=== PATIENT | male | born 1955 | race African-American/Black ===

== ENCOUNTER 2017-04-09 11:18 | Emergency (ER) | payer MEDICAID ==
[~2017-04-09] VITALS: Ht 188 cm; Wt 69.0 kg
[~2017-04-09 11:18] MED LIST: AMLO10TA80 PO; BENA40TA3 PO; DOCU-138 PO
[2017-04-09] MEDS ORDERED: ACETAMINOPHEN 500MG TABLET PO ONE (14:30)
[2017-04-09 18:29] VITALS: BP 124/84
== END 2017-04-09 18:30 | disposition home or self-care (01) ==
LOC: ER 15:07
DX: M25.462 Effusion, left knee (principal); I10 Essential (primary) hypertension; Z98.890 Other specified postprocedural states
CPT/HCPCS: 73562; 99284

== ENCOUNTER 2017-04-12 15:42 | Inpatient (IN) | payer MEDICAID ==
[~2017-04-12] VITALS: Ht 185.4 cm; Wt 67.1 kg
[2017-04-12] MEDS ORDERED: VANCOMYCIN 1 G PREMIX 200 ML IV SCH (20:30)
[2017-04-12] MEDS ORDERED: PIPERACILLIN/TAZ 3.375G PREMIX 50 ML IV NR (20:30)
[2017-04-12] MEDS ORDERED: PIPERACILLIN/TAZOBACTAM 3.375GM/50ML PREMIX IV ONE (20:30)
[2017-04-12 21:16] LABS: BASOPHILS % 1.6 % (0.0-2.0); EOSINOPHILS % 0.8 % (0.0-5.0); HEMATOCRIT. 37.8 % (42.0-52.0); HEMOGLOBIN. 12.4 g/dL (14.0-18.0); LYMPHOCYTES % 14.7 % (20.0-50.0); MEAN CORPUSCULAR HEMOGLOBIN 30.6 pg (28.0-32.0); MEAN CORPUSCULAR VOLUME 93.7 fL (80.0-94.0); MEAN PLATELET VOLUME 8.3 fl (7.4-10.4); MONOCYTES % 7.2 % (2.0-8.0); NEUTROPHILS % 75.7 % (40.0-76.0); PLATELET 319 x1000/uL (130-400); RED BLOOD CELL COUNT 4.03 mill/uL (4.7-6.1); RED CELL DISTRIBUTION WIDTH 20.4 % (11.6-14.6)
[2017-04-12 21:22] LABS: CHLORIDE 102 mEq/L (98-107)
[2017-04-12 21:28] LABS: CARBON DIOXIDE 26 mEq/L (21-32)
[2017-04-13] MEDS ORDERED: ACETAMINOPHEN 325MG TABLET PO ONE (00:45)
[2017-04-13] MEDS ORDERED: PIPERACILLIN/TAZ 2.25G PREMIX 50 ML IV SCH (08:45)
[2017-04-13 09:16] VITALS: BP 126/72
[2017-04-13 10:24] LABS: PARTIAL THROMBOPLASTIN TIME 30.3 sec (23.4-31.0); PROTHROMBIN TIME 10.5 sec (9.4-11.6)
[2017-04-13] MEDS ORDERED: MAGNESIUM/ALUMINUM HYDROXIDE/SIMETHICONE 30ML UDC PO PRN (10:30)
[2017-04-13] MEDS ORDERED: DIPHENHYDRAMINE 50MG/ML VIAL IV PRN (10:30)
[2017-04-13] MEDS ORDERED: ONDANSETRON HCL 4MG/2ML VIAL IV PRN (10:30)
[2017-04-13] MEDS ORDERED: HYDROCODONE/ACETAMINOPHEN 5/325MG TABLET PO PRN (10:30)
[2017-04-13] MEDS ORDERED: ACETAMINOPHEN 650MG SUPP PR PRN (10:30)
[2017-04-13] MEDS ORDERED: IPRATROPIUM/ALBUTEROL 0.5-3(2.5)MG/3ML NEB INH PRN (10:30)
[2017-04-13] MEDS ORDERED: CLONIDINE 0.1MG TABLET PO PRN (10:30)
[2017-04-13] MEDS: AMLODIPINE 10MG TABLET PO SCH (10:30)
[2017-04-13] MEDS ORDERED: DOCUSATE SODIUM 100MG CAPSULE PO PRN ×2 (10:30)
[2017-04-13] MEDS: PIPERACILLIN/TAZ 2.25G PREMIX 50 ML IV SCH ×3 (14:40→21:49)
[2017-04-13] MEDS ORDERED: SODIUM BICARBONATE 4% (2.4MEQ) 5ML VIAL IV ONE (14:43)
[2017-04-13] MEDS ORDERED: LIDOCAINE HCL 1% 20ML VIAL (Pyxis) INJ ONE (14:43)
[2017-04-13 14:52] LABS: CREATINE KINASE 61 IU/L (39-308); TROPONIN I < 0.02 ng/mL (0.00-0.04)
[2017-04-13 16:00] VITALS: BP 109/77
[2017-04-13] MEDS ORDERED: VANCOMYCIN 500 MG PREMIX 100 ML IV NR (18:00)
[2017-04-13 20:00] VITALS: BP 110/76
[2017-04-13 23:28] LABS: CREATINE KINASE 48 IU/L (39-308); TROPONIN I < 0.02 ng/mL (0.00-0.04)
[2017-04-14] VITALS: BP 114/70
[2017-04-14 04:00] VITALS: BP 117/80
[2017-04-14] MEDS: PIPERACILLIN/TAZ 2.25G PREMIX 50 ML IV SCH ×3 (05:26→21:16)
[2017-04-14 07:49] LABS: BASOPHILS % 0.8 % (0.0-2.0); EOSINOPHILS % 1.5 % (0.0-5.0); HEMATOCRIT. 35.8 % (42.0-52.0); HEMOGLOBIN. 11.6 g/dL (14.0-18.0); MEAN CORPUSCULAR HEMOGLOBIN 30.2 pg (28.0-32.0); MEAN CORPUSCULAR VOLUME 93.2 fL (80.0-94.0); MEAN PLATELET VOLUME 8.2 fl (7.4-10.4); MONOCYTES % 11.6 % (2.0-8.0); NEUTROPHILS % 67.1 % (40.0-76.0); PLATELET 308 x1000/uL (130-400); RED BLOOD CELL COUNT 3.84 mill/uL (4.7-6.1); RED CELL DISTRIBUTION WIDTH 19.8 % (11.6-14.6)
[2017-04-14 08:00] VITALS: BP 112/80
[2017-04-14 08:00] LABS: CHLORIDE 101 mEq/L (98-107)
[2017-04-14 08:20] LABS: CARBON DIOXIDE 22 mEq/L (21-32); HDL CHOLESTEROL 67 mg/dL (40-59); LDL CHOLESTEROL 86 mg/dL (5-100)
[2017-04-14] MEDS: AMLODIPINE 10MG TABLET PO SCH (08:26)
[2017-04-14] MEDS: HYDROCODONE/ACETAMINOPHEN 10/325MG TABLET PO PRN ×2 (08:26→13:21)
[2017-04-14 09:09] LABS: BG BASE EXCESS -0.3 mmol/L (-2.0-2.0); BG DEOXYHEMOGLOBIN 4.8 % (0.0-5.0); BG FRACTION INSPIRED OXYGEN 21; BG METHEMOGLOBIN 0.3 % (0.0-1.5); BG OXYGEN SATURATION 95.1 % (92.0-98.5); BG OXYHEMOGLOBIN 93.9 % (94.0-97.0); BG PCO2 38.3 mmHg (35.0-45.0); BG PH 7.415 (7.350-7.450); BG PO2 77.1 mmHg (75.0-100.0); BG SAMPLE SITE RIGHT BRACHIAL; BG TOTAL HEMOGLOBIN 12.9 g/dL (12.0-18.0); BG VENT MODE ROOM AIR
[2017-04-14 12:00] VITALS: BP 100/69
[2017-04-14 12:24] LABS: CLARITY URINE CLEAR (CLEAR); COLOR URINE YELLOW (YELLOW); GLUCOSE URINE NEGATIVE (NEGATIVE); KETONES URINE NEGATIVE (NEGATIVE); LEUKOCYTE ESTERASE URINE 1+ (NEGATIVE); NITRITE URINE NEGATIVE (NEGATIVE); OCCULT BLOOD URINE 1+ (NEGATIVE); PH URINE 6.5 (4.5-8.0); PROTEIN URINE 2+ (NEGATIVE); SPECIFIC GRAVITY URINE 1.016 (1.005-1.030)
[2017-04-14 16:00] VITALS: BP 109/76
[2017-04-14 20:00] VITALS: BP 108/73
[2017-04-15] VITALS: BP 114/71
[2017-04-15] MEDS: HYDROCODONE/ACETAMINOPHEN 10/325MG TABLET PO PRN ×3 (00:14→20:36)
[2017-04-15 04:00] VITALS: BP 122/81
[2017-04-15] MEDS: PIPERACILLIN/TAZ 2.25G PREMIX 50 ML IV SCH ×3 (05:10→21:13)
[2017-04-15 08:00] VITALS: BP 114/85
[2017-04-15] MEDS: AMLODIPINE 10MG TABLET PO SCH (09:08)
[2017-04-15 12:00] VITALS: BP 116/77
[2017-04-15 13:35] LABS: BASOPHILS % 0.9 % (0.0-2.0); EOSINOPHILS % 2.5 % (0.0-5.0); HEMATOCRIT. 36.4 % (42.0-52.0); HEMOGLOBIN. 11.9 g/dL (14.0-18.0); LYMPHOCYTES % 19.3 % (20.0-50.0); MEAN CORPUSCULAR HEMOGLOBIN 30.5 pg (28.0-32.0); MEAN CORPUSCULAR VOLUME 92.9 fL (80.0-94.0); MONOCYTES % 11.6 % (2.0-8.0); NEUTROPHILS % 65.7 % (40.0-76.0); PLATELET 332 x1000/uL (130-400); RED BLOOD CELL COUNT 3.92 mill/uL (4.7-6.1)
[2017-04-15 16:00] VITALS: BP 101/62
[2017-04-15] MEDS ORDERED: VANCOMYCIN 1 G PREMIX 200 ML IV NR (18:00)
[2017-04-15 20:00] VITALS: BP 101/68
[2017-04-16] VITALS (11 sets, daily range): BP systolic 114–138; BP diastolic 77–94
[2017-04-16 07:20] LABS: BASOPHILS % 0.7 % (0.0-2.0); EOSINOPHILS % 2.5 % (0.0-5.0); HEMATOCRIT. 34.1 % (42.0-52.0); HEMOGLOBIN. 11.4 g/dL (14.0-18.0); LYMPHOCYTES % 23.6 % (20.0-50.0); MEAN CORPUSCULAR VOLUME 92.4 fL (80.0-94.0); MEAN PLATELET VOLUME 7.9 fl (7.4-10.4); MONOCYTES % 11.5 % (2.0-8.0); NEUTROPHILS % 61.7 % (40.0-76.0); PLATELET 354 x1000/uL (130-400); RED CELL DISTRIBUTION WIDTH 19.9 % (11.6-14.6)
[2017-04-16] MEDS ORDERED: SODIUM BICARBONATE 4% (2.4MEQ) 5ML VIAL IV ONE (08:09)
[2017-04-16] MEDS ORDERED: LIDOCAINE HCL 1% 20ML VIAL (Pyxis) INJ ONE (08:09)
[2017-04-16] MEDS ORDERED: FENTANYL CITRATE/PF 50MCG/ML 2ML VIAL ONE (08:34)
[2017-04-16] MEDS ORDERED: FENTANYL CITRATE/PF 50MCG/ML 2ML VIAL IV ONE (09:00)
[2017-04-16] MEDS: AMLODIPINE 10MG TABLET PO SCH (09:20)
[2017-04-16] MEDS ORDERED: TRAM50TA3 PO (10:46)
[2017-04-16] MEDS ORDERED: AMLO10TA80 PO (10:46)
[2017-04-16] MEDS: PIPERACILLIN/TAZ 2.25G PREMIX 50 ML IV SCH (13:38)
[2017-04-16] MEDS ORDERED: VANCOMYCIN 750 MG PREMIX 150 ML IV SCH (16:00)
[2017-04-16] MEDS ORDERED: HEPARIN SODIUM 1,000 UNIT/1ML VIAL IV NR (16:30)
== END 2017-04-16 20:00 | disposition home or self-care (01) | DRG 721 ==
LOC: ER 15:42 → 8WST 23:13 → ENRESERV 04-13 07:09
PROVIDERS: ADMIT Internal Medicine; ATTEND Internal Medicine
PROC: 02PYX3Z Removal of Infusion Device from Great Vessel, External Approach (ICD-10-PCS; principal; 2017-04-13)
PROC: 02HV33Z Insertion of Infusion Device into Superior Vena Cava, Percutaneous Approach (ICD-10-PCS; 2017-04-16)
PROC: B548ZZA Ultrasonography of Superior Vena Cava, Guidance (ICD-10-PCS; 2017-04-16)
DX: T80.211A Bloodstream infection due to central venous catheter, initial encounter (principal); E43 Unspecified severe protein-calorie malnutrition; N18.6 End stage renal disease; A41.9 Sepsis, unspecified organism; I12.0 Hypertensive chronic kidney disease with stage 5 chronic kidney disease or end stage renal disease; N39.0 Urinary tract infection, site not specified; J44.9 Chronic obstructive pulmonary disease, unspecified; Y84.8 Other medical procedures as the cause of abnormal reaction of the patient, or of later complication, without mention of misadventure at the time of the procedure; B96.89 Other specified bacterial agents as the cause of diseases classified elsewhere; D64.9 Anemia, unspecified; F17.210 Nicotine dependence, cigarettes, uncomplicated; Z79.899 Other long term (current) drug therapy; Z99.2 Dependence on renal dialysis
CPT/HCPCS: 36415; 36589; 36600; 71010; 73560; 76937; 77001; 80048; 80053; 80061; 80202; 81001; 82375; 82550; 82805; 83605; 84443; 84484; 85025; 85610; 85730; 87040; 87070; 87077; 87186; 93306; 93970; 96365; 96367; 97162; 99285; C1750; C1769; J1642; J1644; J2543; J3010; J3370; J3490; J7050

== ENCOUNTER 2018-06-02 11:16 | Emergency (ER) | payer MEDICAID ==
[~2018-06-02] VITALS: Ht 182.9 cm; Wt 78.0 kg
[~2018-06-02 11:16] MED LIST changes: -BENA40TA3 PO; +TRAM50TA3 PO
[2018-06-02 13:08] LABS: BASOPHILS % 0.8 % (0.0-2.0); EOSINOPHILS % 4.2 % (0.0-5.0); HEMATOCRIT. 36.9 % (42.0-52.0); HEMOGLOBIN. 12.7 g/dL (14.0-18.0); MEAN CORPUSCULAR HEMOGLOBIN 33.3 pg (28.0-32.0); MEAN CORPUSCULAR VOLUME 96.6 fL (80.0-94.0); MEAN PLATELET VOLUME 8.9 fl (7.4-10.4); MONOCYTES % 9.8 % (2.0-8.0); NEUTROPHILS % 38.2 % (40.0-76.0); PLATELET 214 x1000/uL (130-400); RED BLOOD CELL COUNT 3.82 mill/uL (4.7-6.1); RED CELL DISTRIBUTION WIDTH 15.2 % (11.6-14.6)
[2018-06-02 13:16] LABS: CHLORIDE 95 mEq/L (98-107)
[2018-06-02 14:17] VITALS: BP 110/68
== END 2018-06-02 14:19 | disposition home or self-care (01) ==
LOC: ER 11:16
DX: R55 Syncope and collapse (principal); I12.9 Hypertensive chronic kidney disease with stage 1 through stage 4 chronic kidney disease, or unspecified chronic kidney disease; N18.9 Chronic kidney disease, unspecified; Z99.2 Dependence on renal dialysis
CPT/HCPCS: 36415; 84484; 99284

== ENCOUNTER 2019-09-12 05:27 | Inpatient (IN) | payer MEDICAID ==
[~2019-09-12] VITALS: Ht 182.9 cm; Wt 72.6 kg
[2019-09-12] MEDS ORDERED: TRANEXAMIC ACID 1,000 MG in SODIUM CHLORIDE 0.9% 100 ML IV STA (06:27)
[2019-09-12] MEDS ORDERED: MORPHINE SULFATE/PF 1MG/ML 10ML AMP ONE (06:35)
[2019-09-12] MEDS ORDERED: EPINEPHRINE 1:1000 1 MG/ML AMP ONE (06:36)
[2019-09-12] MEDS ORDERED: SKIN ADHESIVE 0.7 GM EA TOP ONE (06:36)
[2019-09-12] MEDS ORDERED: BUPIVACAINE/EPINEPH/PF 0.25%/0.0005 10ML ONE ×3 (06:36→12:09)
[2019-09-12] MEDS ORDERED: BACITRACIN 50,000 UNITS/VIAL ONE ×2 (06:37→07:19)
[2019-09-12] MEDS ORDERED: VANCOMYCIN HCL 1 GM/VIAL ONE (06:37)
[2019-09-12 07:17] LABS: BASOPHILS % 0.6 % (0.0-2.0); EOSINOPHILS % 4.4 % (0.0-5.0); HEMATOCRIT. 34.6 % (42.0-52.0); HEMOGLOBIN. 11.7 g/dL (14.0-18.0); LYMPHOCYTES % 30.7 % (20.0-50.0); MEAN CORPUSCULAR HEMOGLOBIN 32.2 pg (28.0-32.0); MEAN CORPUSCULAR VOLUME 95.4 fL (80.0-94.0); MEAN PLATELET VOLUME 8.4 fl (7.4-10.4); MONOCYTES % 8.8 % (2.0-8.0); NEUTROPHILS % 55.5 % (40.0-76.0); PLATELET 192 x1000/uL (130-400); RED BLOOD CELL COUNT 3.63 mill/uL (4.7-6.1); RED CELL DISTRIBUTION WIDTH 15.6 % (11.6-14.6)
[2019-09-12] MEDS ORDERED: BENA20TA10 PO (07:18)
[2019-09-12 07:25] LABS: CLARITY URINE CLEAR (CLEAR); COLOR URINE YELLOW (YELLOW); KETONES URINE NEGATIVE (NEGATIVE); LEUKOCYTE ESTERASE URINE TRACE (NEGATIVE); NITRITE URINE NEGATIVE (NEGATIVE); OCCULT BLOOD URINE NEGATIVE (NEGATIVE); PH URINE >=9.0 (4.5-8.0); PROTEIN URINE 2+ (NEGATIVE); UROBILINOGEN URINE 0.2 E.U./dL (0.2-1.0)
[2019-09-12] MEDS ORDERED: FENTANYL CITRATE/PF 50MCG/ML 2ML VIAL ONE (07:36)
[2019-09-12] MEDS ORDERED: PROPOFOL 200MG/20ML VIAL IV ONE (07:36)
[2019-09-12] MEDS ORDERED: ROCURONIUM BROMIDE 10MG/ML VIAL 5ML IV ONE ×3 (07:36→11:07)
[2019-09-12] MEDS ORDERED: MIDAZOLAM HCL 2 MG/2 ML VIAL ONE (07:36)
[2019-09-12] MEDS ORDERED: ROPIVACAINE HCL 10MG/ML 20 ML VIAL EPI ONE (07:39)
[2019-09-12] MEDS ORDERED: GENTAMICIN SULF 40MG/ML 2ML VIAL ONE (08:27)
[2019-09-12 09:04] LABS: PARTIAL THROMBOPLASTIN TIME 29.2 sec (23.4-31.0); PROTHROMBIN TIME 10.4 sec (9.6-11.0)
[2019-09-12] MEDS ORDERED: THROMBIN (BOVINE) 5000 UNITS/VIAL TOP ONE (09:54)
[2019-09-12] MEDS ORDERED: PHENYLEPHRINE HCL 10 MG/ML 1ML (IV VIAL) IV ONE ×2 (10:22→10:51)
[2019-09-12] MEDS ORDERED: CEFAZOLIN SODIUM 1000MG/VIAL ONE (10:22)
[2019-09-12] MEDS ORDERED: SODIUM CHLORIDE 0.9% 10ML VIAL ONE (10:22)
[2019-09-12] MEDS ORDERED: LIDOCAINE HCL/PF 1% 10 MG/ML 5ML VIAL ONE (10:22)
[2019-09-12] MEDS ORDERED: METHYLENE BLUE 50 MG/10 ML AMP IV ONE (10:50)
[2019-09-12] MEDS ORDERED: NEOSTIGMINE METHYLSULFATE 1MG/ML 10 ML VIAL ONE (13:05)
[2019-09-12] MEDS ORDERED: GLYCOPYRROLATE 0.2 MG/ML 2ML VIAL ONE (13:06)
[2019-09-12] MEDS ORDERED: ONDANSETRON HCL 4MG/2ML INJ IV PRN ×2 (13:15→13:30)
[2019-09-12] MEDS ORDERED: FENTANYL CITRATE/PF 50MCG/ML 2ML VIAL IV PRN (13:15)
[2019-09-12] MEDS ORDERED: HYDROMORPHONE HCL/PF 2MG/ML CPJ IV PRN (13:15)
[2019-09-12] MEDS ORDERED: ACETAMINOPHEN 325MG TABLET PO PRN (13:30)
[2019-09-12] MEDS ORDERED: HYDROCODONE/ACETAMINOPHEN 10/325MG TABLET PO PRN ×2 (13:30)
[2019-09-12] MEDS ORDERED: HYDROMORPHONE PCA 10MG/50ML IV PRN (14:15)
[2019-09-12] MEDS ORDERED: ONDANSETRON INJ IV PRN (14:15)
[2019-09-12] MEDS ORDERED: DIPHENHYDRAMINE INJ IV PRN (14:15)
[2019-09-12] MEDS ORDERED: NALOXONE INJ IV PRN (14:15)
[2019-09-12 15:22] VITALS: BP 87/46
[2019-09-12 16:00] VITALS: BP 107/31
[2019-09-12 20:00] VITALS: BP 155/49
[2019-09-13] VITALS: BP 142/41
[2019-09-13 04:00] VITALS: BP 154/68
[2019-09-13 07:48] LABS: BASOPHILS % 0.2 % (0.0-2.0); EOSINOPHILS % 0.5 % (0.0-5.0); HEMATOCRIT. 30.4 % (42.0-52.0); HEMOGLOBIN. 10.5 g/dL (14.0-18.0); LYMPHOCYTES % 12.1 % (20.0-50.0); MEAN CORPUSCULAR HEMOGLOBIN 32.8 pg (28.0-32.0); MEAN CORPUSCULAR VOLUME 94.9 fL (80.0-94.0); MEAN PLATELET VOLUME 9.1 fl (7.4-10.4); MONOCYTES % 9.2 % (2.0-8.0); PLATELET 156 x1000/uL (130-400); RED CELL DISTRIBUTION WIDTH 15.8 % (11.6-14.6)
[2019-09-13 08:00] VITALS: BP 143/56
[2019-09-13] MEDS ORDERED: CEFAZOLIN 1000MG PREMIX 50 ML IV ONE (08:00)
[2019-09-13] MEDS: DOCUSATE SODIUM 100MG CAPSULE PO SCH (09:11)
[2019-09-13 12:00] VITALS: BP 152/48
[2019-09-13 16:00] VITALS: BP 143/68
[2019-09-14] VITALS: BP 144/44
[2019-09-14 04:00] VITALS: BP 134/78
[2019-09-14] MEDS: DOCUSATE SODIUM 100MG CAPSULE PO SCH (07:51)
[2019-09-14 08:00] VITALS: BP 137/47
[2019-09-14 08:07] VITALS: BP 148/58
[2019-09-14 12:00] VITALS: BP 150/35
[2019-09-14 16:00] VITALS: BP 146/67
== END 2019-09-14 18:45 | disposition home or self-care (01) | DRG 322 ==
LOC: OR 05:27 → 6EST 05:28
PROVIDERS: ADMIT Orthopaedic Surgery; ATTEND Orthopaedic Surgery
PROC: 0RRJ0JZ Replacement of Right Shoulder Joint with Synthetic Substitute, Open Approach (ICD-10-PCS; principal; 2019-09-12)
PROC: 5A1D70Z Performance of Urinary Filtration, Intermittent, Less than 6 Hours Per Day (ICD-10-PCS; 2019-09-12)
DX: M19.011 Primary osteoarthritis, right shoulder (principal); I12.0 Hypertensive chronic kidney disease with stage 5 chronic kidney disease or end stage renal disease; N18.6 End stage renal disease; D64.9 Anemia, unspecified; M75.110 Incomplete rotator cuff tear or rupture of unspecified shoulder, not specified as traumatic; G89.29 Other chronic pain; D63.1 Anemia in chronic kidney disease; Z99.2 Dependence on renal dialysis; Z79.899 Other long term (current) drug therapy
CPT/HCPCS: 36415; 73030; 80048; 81003; 85025; 86850; 86900; 88305; 88311; 93005; 97166; 97535; A4565; C1713; C1776; J0171; J0690; J1170; J1580; J2250; J2274; J2370; J2704; J2710; J2795; J3010; J3370; J3490; J7050; Q9968

== ENCOUNTER 2019-10-17 08:47 | Emergency (ER) | payer MEDICAID ==
[~2019-10-17] VITALS: Ht 182.9 cm; Wt 69.0 kg
[~2019-10-17 08:47] MED LIST changes: +BENA20TA10 PO
[2019-10-17] MEDS ORDERED: ACETAMINOPHEN 325MG TABLET PO ONE (09:15)
[2019-10-17 10:40] VITALS: BP 158/92
== END 2019-10-17 10:55 | disposition home or self-care (01) ==
LOC: ER 08:47
DX: M25.511 Pain in right shoulder (principal); I10 Essential (primary) hypertension; Z99.2 Dependence on renal dialysis; Z79.899 Other long term (current) drug therapy
CPT/HCPCS: 73030; 93971; 99284

== ENCOUNTER 2020-04-27 10:09 | Inpatient (IN) | payer MEDICAID ==
[~2020-04-27] VITALS: Ht 177.8 cm; Wt 70.8 kg
[2020-04-27 12:02] LABS: BASOPHILS % 0.5 % (0.0-2.0); EOSINOPHILS % 4.4 % (0.0-5.0); HEMATOCRIT. 34.5 % (42.0-52.0); HEMOGLOBIN. 11.7 g/dL (14.0-18.0); LYMPHOCYTES % 18.4 % (20.0-50.0); MEAN CORPUSCULAR HEMOGLOBIN 32.4 pg (28.0-32.0); MEAN CORPUSCULAR VOLUME 95.9 fL (80.0-94.0); MEAN PLATELET VOLUME 9.2 fl (7.4-10.4); MONOCYTES % 8.9 % (2.0-8.0); NEUTROPHILS % 67.8 % (40.0-76.0); PLATELET 195 x1000/uL (130-400); RED CELL DISTRIBUTION WIDTH 15.9 % (11.6-14.6)
[2020-04-27 12:03] LABS: CHLORIDE 96 mEq/L (98-107)
[2020-04-27 12:06] LABS: PROTHROMBIN TIME 10.5 sec (9.6-11.0)
[2020-04-27 12:18] LABS: CLARITY URINE CLEAR (CLEAR); COLOR URINE YELLOW (YELLOW); KETONES URINE NEGATIVE (NEGATIVE); LEUKOCYTE ESTERASE URINE TRACE (NEGATIVE); NITRITE URINE NEGATIVE (NEGATIVE); OCCULT BLOOD URINE NEGATIVE (NEGATIVE); PH URINE >=9.0 (4.5-8.0); PROTEIN URINE 2+ (NEGATIVE); SPECIFIC GRAVITY URINE 1.014 (1.005-1.030)
[2020-04-27] MEDS ORDERED: SODIUM POLYSTYRENE SULFONATE 15 G/60 ML BOT PO ONE (13:15)
[2020-04-27 15:58] VITALS: BP 125/78
[2020-04-27] MEDS ORDERED: AMLO10TA80 MT (16:06)
[2020-04-27] MEDS ORDERED: BENA10TA74 MT (16:06)
[2020-04-27] MEDS ORDERED: ACETAMINOPHEN 325MG TABLET PO PRN (17:45)
[2020-04-27] MEDS ORDERED: HYDROCODONE/ACETAMINOPHEN 5/325MG TABLET PO PRN (17:58)
[2020-04-27 20:00] VITALS: BP 115/80
[2020-04-27] MEDS: HEPARIN 5000 UNITS/ML VIAL SUBCUT SCH (20:51)
[2020-04-28] VITALS: BP 122/79
[2020-04-28 04:00] VITALS: BP 108/74
[2020-04-28 06:16] LABS: BASOPHILS % 0.4 % (0.0-2.0); EOSINOPHILS % 4.9 % (0.0-5.0); HEMOGLOBIN. 10.7 g/dL (14.0-18.0); LYMPHOCYTES % 24.1 % (20.0-50.0); MEAN CORPUSCULAR HEMOGLOBIN 32.2 pg (28.0-32.0); MEAN CORPUSCULAR VOLUME 93.8 fL (80.0-94.0); MEAN PLATELET VOLUME 9.1 fl (7.4-10.4); NEUTROPHILS % 59.6 % (40.0-76.0); PLATELET 172 x1000/uL (130-400); RED BLOOD CELL COUNT 3.31 mill/uL (4.7-6.1); RED CELL DISTRIBUTION WIDTH 15.7 % (11.6-14.6)
[2020-04-28 08:00] VITALS: BP 96/56
[2020-04-28] MEDS: HEPARIN 5000 UNITS/ML VIAL SUBCUT SCH ×2 (09:00→21:00)
[2020-04-28] MEDS: BENAZEPRIL 10MG TABLET PO SCH (09:00)
[2020-04-28] MEDS: AMLODIPINE 10MG TABLET PO SCH (09:00)
[2020-04-28 12:00] VITALS: BP 99/60
[2020-04-28 16:00] VITALS: BP 101/61
[2020-04-28 20:00] VITALS: BP 113/78
[2020-04-29] VITALS (32 sets, daily range): BP systolic 109–142; BP diastolic 70–86
[2020-04-29 06:52] LABS: PARTIAL THROMBOPLASTIN TIME 34.1 sec (23.4-31.0); PROTHROMBIN TIME 10.8 sec (9.6-11.0)
[2020-04-29] MEDS ORDERED: CEFAZOLIN 1000MG PREMIX 50 ML IV NR (08:00)
[2020-04-29] MEDS: BENAZEPRIL 10MG TABLET PO SCH (08:00)
[2020-04-29] MEDS: HEPARIN 5000 UNITS/ML VIAL SUBCUT SCH ×2 (08:00→21:00)
[2020-04-29] MEDS: AMLODIPINE 10MG TABLET PO SCH (08:00)
[2020-04-29] MEDS ORDERED: FENTANYL CITRATE/PF 50MCG/ML 2ML VIAL ONE (08:06)
[2020-04-29] MEDS ORDERED: CEFAZOLIN 1000MG PREMIX 50 ML IV ONE (08:06)
[2020-04-29] MEDS ORDERED: SODIUM BICARBONATE 4% (2.4MEQ) 5ML VIAL IV ONE (08:13)
[2020-04-29] MEDS ORDERED: IOHEXOL-300 100 ML BOTTLE ONE (08:14)
[2020-04-29] MEDS ORDERED: HEPARIN 1000 UNITS/ML 10ML ONE (08:14)
[2020-04-29] MEDS ORDERED: LIDOCAINE HCL 1% 20ML VIAL (Pyxis) INJ ONE (08:14)
[2020-04-29] MEDS ORDERED: HEPARIN 5000 UNITS/ML VIAL IV SCH (10:45)
[2020-04-29] MEDS ORDERED: IOHEXOL-300 50 ML BOTTLE IV ONE (11:13)
[2020-04-29] MEDS ORDERED: FENTANYL CITRATE/PF 50MCG/ML 2ML VIAL IV ONE (11:30)
[2020-04-29 13:50] LABS: HEMATOCRIT. 31.8 % (42.0-52.0); HEMOGLOBIN. 10.8 g/dL (14.0-18.0); MEAN CORPUSCULAR HEMOGLOBIN 32.3 pg (28.0-32.0); MEAN CORPUSCULAR VOLUME 94.9 fL (80.0-94.0); PLATELET 198 x1000/uL (130-400); RED BLOOD CELL COUNT 3.35 mill/uL (4.7-6.1); RED CELL DISTRIBUTION WIDTH 15.5 % (11.6-14.6)
[2020-04-29 14:22] LABS: PLATELET ESTIMATE NORMAL
[2020-04-29 14:44] LABS: HEPATITIS B SURFACE AB 30.2 mIU/mL
[2020-04-29 14:55] LABS: HEPATITIS B SURFACE ANTIGEN NEGATIVE
[2020-04-29] MEDS ORDERED: HEPARIN SODIUM 1,000 UNIT/1ML VIAL IV ONE (23:30)
[2020-04-30] VITALS (15 sets, daily range): BP systolic 102–152; BP diastolic 66–86
[2020-04-30] MEDS ORDERED: CEFAZOLIN 1000MG PREMIX 50 ML IV ONE (08:51)
[2020-04-30] MEDS ORDERED: FENTANYL CITRATE/PF 50MCG/ML 2ML VIAL ONE (08:52)
[2020-04-30] MEDS ORDERED: CEFAZOLIN 1000MG PREMIX 50 ML IV NR (09:00)
[2020-04-30] MEDS ORDERED: FENTANYL CITRATE/PF 50MCG/ML 2ML VIAL IV ONE (09:30)
[2020-04-30] MEDS ORDERED: SODIUM BICARBONATE 4% (2.4MEQ) 5ML VIAL IV ONE (10:05)
[2020-04-30] MEDS ORDERED: LIDOCAINE HCL 1% 20ML VIAL (Pyxis) INJ ONE (10:05)
[2020-04-30] MEDS ORDERED: HEPARIN 1000 UNITS/ML 10ML ONE (10:05)
[2020-04-30] MEDS: AMLODIPINE 10MG TABLET PO SCH (10:30)
[2020-04-30] MEDS: BENAZEPRIL 10MG TABLET PO SCH (10:31)
[2020-04-30] MEDS: HEPARIN 5000 UNITS/ML VIAL SUBCUT SCH (10:31)
[2020-05-01 06:07] LABS: HIV SCREEN 4G Non Reactive (Non Reactive)
== END 2020-04-30 15:35 | disposition home or self-care (01) | DRG 182 ==
LOC: ER 10:09 → 8WST 13:01 → ENRESERV 13:41
PROVIDERS: ADMIT Internal Medicine; ATTEND Internal Medicine
PROC: 05CY3ZZ Extirpation of Matter from Upper Vein, Percutaneous Approach (ICD-10-PCS; 2020-04-29)
PROC: B31N1ZZ Fluoroscopy of Other Upper Arteries using Low Osmolar Contrast (ICD-10-PCS; 2020-04-29)
PROC: 05H Upper Veins, Insertion (ICD-10-PCS; 2020-04-29)
PROC: 5A1D70Z Performance of Urinary Filtration, Intermittent, Less than 6 Hours Per Day (ICD-10-PCS; 2020-04-29)
PROC: 0JH63XZ Insertion of Tunneled Vascular Access Device into Chest Subcutaneous Tissue and Fascia, Percutaneous Approach (ICD-10-PCS; principal; 2020-04-30)
PROC: 02H633Z Insertion of Infusion Device into Right Atrium, Percutaneous Approach (ICD-10-PCS; 2020-04-30)
DX: T82.510A Breakdown (mechanical) of surgically created arteriovenous fistula, initial encounter (principal); N18.6 End stage renal disease; N17.9 Acute kidney failure, unspecified; I12.0 Hypertensive chronic kidney disease with stage 5 chronic kidney disease or end stage renal disease; E87.5 Hyperkalemia; D64.9 Anemia, unspecified; M19.90 Unspecified osteoarthritis, unspecified site; Y71.2 Prosthetic and other implants, materials and accessory cardiovascular devices associated with adverse incidents; Z20.828 Contact with and (suspected) exposure to other viral communicable diseases; Z99.2 Dependence on renal dialysis; Z82.49 Family history of ischemic heart disease and other diseases of the circulatory system; Y92.89 Other specified places as the place of occurrence of the external cause
CPT/HCPCS: 36415; 36558; 36906; 71045; 76937; 77001; 80048; 80053; 81003; 84484; 85025; 87389; 87426; 93005; 93971; 99152; 99153; 99285; C1725; C1766; C1769; C1876; C2630; J0690; J1644; J3010; J3490; Q9967; G0500

== ENCOUNTER → 2020-11-07 | Outpatient (CLI) | payer MEDICAID ==
[~2020-11-07] MED LIST changes: +AMLO10TA80 MT; +BENA10TA74 MT
== END | disposition home or self-care (01) ==
LOC: LAB 13:19
PROVIDERS: ATTEND Orthopaedic Surgery
DX: Z01.812 Encounter for preprocedural laboratory examination (principal); Z20.822 Contact with and (suspected) exposure to COVID-19
CPT/HCPCS: 87426

== ENCOUNTER → 2020-11-08 | Day surgery (SDC) | payer MEDICAID ==
[~2020-11-08] VITALS: Ht 182.9 cm; Wt 72.6 kg
[~2020-11-08] MED LIST changes: +GLYCOPYRROLATE 0.2 MG/ML 2ML VIAL ONE; +HYDROCODONE/ACETAMINOPHEN 10/325MG TABLET PO PRN; +HYDROMORPHONE HCL/PF 2MG/ML CPJ IV PRN; +LABETALOL 5MG/ML SYR 20 MG/4 ML SYRINGE IV PRN; +LACTATED RINGERS 1,000 ML IV SCH; +MEPERIDINE HCL/PF 25MG/ML CPJ IV PRN; +ONDANSETRON HCL 4MG/2ML INJ IV PRN; +SODIUM CHLORIDE 0.9% 500 ML IV ONE
== END | disposition home or self-care (01) ==
LOC: OR 05:05
PROVIDERS: ATTEND Orthopaedic Surgery
DX: M25.611 Stiffness of right shoulder, not elsewhere classified (principal); I12.0 Hypertensive chronic kidney disease with stage 5 chronic kidney disease or end stage renal disease; N18.6 End stage renal disease; Z99.2 Dependence on renal dialysis; Z79.899 Other long term (current) drug therapy; Z79.82 Long term (current) use of aspirin; Z98.890 Other specified postprocedural states; Z96.611 Presence of right artificial shoulder joint
CPT/HCPCS: 23700; 36415; 73030; 84132; J3490; J7040; 76000; A4565

== ENCOUNTER 2021-07-04 06:30 | Emergency (ER) | payer BC, MEDICAID ==
[~2021-07-04] VITALS: Ht 182.9 cm; Wt 73.0 kg
[2021-07-04] VITALS (21 sets, daily range): BP systolic 145–156; BP diastolic 76–99
[~2021-07-04 06:30] MED LIST changes: -AMLO10TA80 MT; -BENA10TA74 MT; -DOCU-138 PO; -GLYCOPYRROLATE 0.2 MG/ML 2ML VIAL ONE; -HYDROCODONE/ACETAMINOPHEN 10/325MG TABLET PO PRN; -HYDROMORPHONE HCL/PF 2MG/ML CPJ IV PRN; -LABETALOL 5MG/ML SYR 20 MG/4 ML SYRINGE IV PRN; -LACTATED RINGERS 1,000 ML IV SCH; -MEPERIDINE HCL/PF 25MG/ML CPJ IV PRN; -ONDANSETRON HCL 4MG/2ML INJ IV PRN; -SODIUM CHLORIDE 0.9% 500 ML IV ONE; -TRAM50TA3 PO
[2021-07-04] MEDS ORDERED: ALTEPLASE 2MG/VIAL ITC ONE (08:00)
[2021-07-04 08:13] LABS: BASOPHILS % 0.5 % (0.0-2.0); EOSINOPHILS % 8.4 % (0.0-5.0); HEMATOCRIT. 35.6 % (42.0-52.0); HEMOGLOBIN. 11.6 g/dL (14.0-18.0); LYMPHOCYTES % 21.5 % (20.0-50.0); MEAN CORPUSCULAR HEMOGLOBIN 31.1 pg (28.0-32.0); MEAN CORPUSCULAR VOLUME 95.2 fL (80.0-94.0); MEAN PLATELET VOLUME 8.8 fl (7.4-10.4); MONOCYTES % 6.9 % (2.0-8.0); NEUTROPHILS % 62.7 % (40.0-76.0); PLATELET 207 x1000/uL (130-400); RED BLOOD CELL COUNT 3.74 mill/uL (4.7-6.1); RED CELL DISTRIBUTION WIDTH 17.1 % (11.6-14.6)
[2021-07-04 08:20] LABS: CHLORIDE 103 mEq/L (98-107)
[2021-07-04 08:56] LABS: PROTHROMBIN TIME 10.7 sec (9.6-11.0)
[2021-07-04] MEDS ORDERED: CEFAZOLIN 1000MG PREMIX 50 ML IV ONE ×2 (09:04→09:45)
[2021-07-04] MEDS ORDERED: FENTANYL CITRATE/PF 50MCG/ML 2ML VIAL ONE (09:04)
[2021-07-04] MEDS ORDERED: LIDOCAINE HCL 1% 20ML VIAL (Pyxis) INJ ONE (09:05)
[2021-07-04] MEDS ORDERED: IOHEXOL-300 100 ML BOTTLE ONE (09:05)
[2021-07-04] MEDS ORDERED: HEPARIN 1000 UNITS/ML 10ML ONE (09:05)
[2021-07-04 09:15] LABS: HEPATITIS B SURFACE ANTIGEN NEGATIVE
[2021-07-04] MEDS ORDERED: FENTANYL CITRATE/PF 50MCG/ML 2ML VIAL IV ONE (10:45)
[2021-07-04] MEDS ORDERED: MORPHINE SULFATE 2 MG/ML CPJ (NOT FOR IM USE) IV PRN (12:00)
[2021-07-04] MEDS ORDERED: MAGNESIUM/ALUMINUM HYDROXIDE/SIMETHICONE 30ML UDC PO PRN (12:00)
[2021-07-04] MEDS ORDERED: DIPHENHYDRAMINE 50MG/ML VIAL IV PRN (12:00)
[2021-07-04] MEDS ORDERED: GUAIFENESIN 200MG/10ML SUGAR FREE UDC PO PRN (12:00)
[2021-07-04] MEDS ORDERED: LORAZEPAM 0.5MG TABLET PO PRN (12:00)
[2021-07-04] MEDS ORDERED: ONDANSETRON HCL 4MG/2ML INJ IV PRN (12:00)
[2021-07-04] MEDS ORDERED: ACETAMINOPHEN 650MG SUPP PR PRN (12:00)
[2021-07-04] MEDS ORDERED: NA PHOS,M-B/NA PHOS,DI-BA ENEMA 118ML PR PRN (12:00)
[2021-07-04] MEDS ORDERED: IPRATROPIUM/ALBUTEROL 0.5-3(2.5)MG/3ML NEB NEB PRN (12:00)
[2021-07-04] MEDS ORDERED: HYDROCODONE/ACETAMINOPHEN 5/325MG TABLET PO PRN (12:00)
[2021-07-04] MEDS ORDERED: DOCUSATE SODIUM 100MG CAPSULE PO PRN (12:00)
[2021-07-04] MEDS ORDERED: ACETAMINOPHEN 325MG TABLET PO PRN (12:00)
[2021-07-04] MEDS ORDERED: NALOXONE HCL 0.4MG/ML VIAL IV PRN (12:30)
[2021-07-04] MEDS ORDERED: HYDRALAZINE HCL 50MG TABLET PO SCH (14:00)
[2021-07-04] MEDS ORDERED: AMLODIPINE 5MG TABLET PO SCH (21:00)
[2021-07-04] MEDS ORDERED: FAMOTIDINE 20MG TABLET PO SCH (21:00)
== END 2021-07-04 16:53 | disposition home or self-care (01) ==
LOC: ER 06:30 → SUPCPDRO 11:51 → EDBEDREQ 12:03 → EDBEDREQTM 12:03 → ENRESERV 16:38 → CANRESERV 16:38 → ER 16:53 → CANBEDREQ 18:10
DX: I63.9 Cerebral infarction, unspecified (principal); Z91.15 Patient's noncompliance with renal dialysis; Z20.822 Contact with and (suspected) exposure to COVID-19
CPT/HCPCS: 36415; 36905; 76937; 80053; 85025; 85610; 86705; 86709; 86803; 87086; 87340; 87426; 96365; 96375; 99285; C1725; C1766; C1769; J0690; J1644; J2997; J3010; J3490; Q9967; 99152; 99153; G0500

== ENCOUNTER 2021-08-29 08:35 | Emergency (ER) | payer BC, MEDICAID ==
[2021-08-29] VITALS (18 sets, daily range): BP systolic 124–168; BP diastolic 84–93
[~2021-08-29] VITALS: Ht 182.9 cm; Wt 73.0 kg
[2021-08-29 10:10] LABS: BASOPHILS % 0.8 % (0.0-2.0); EOSINOPHILS % 7.7 % (0.0-5.0); HEMATOCRIT. 37.6 % (42.0-52.0); HEMOGLOBIN. 12.7 g/dL (14.0-18.0); LYMPHOCYTES % 23.3 % (20.0-50.0); MEAN CORPUSCULAR HEMOGLOBIN 31.7 pg (28.0-32.0); MEAN CORPUSCULAR VOLUME 94.1 fL (80.0-94.0); MEAN PLATELET VOLUME 8.8 fl (7.4-10.4); MONOCYTES % 6.7 % (2.0-8.0); NEUTROPHILS % 61.5 % (40.0-76.0); PLATELET 204 x1000/uL (130-400); RED BLOOD CELL COUNT 3.99 mill/uL (4.7-6.1); RED CELL DISTRIBUTION WIDTH 16.7 % (11.6-14.6)
[2021-08-29 10:16] LABS: CHLORIDE 104 mEq/L (98-107)
[2021-08-29] MEDS ORDERED: ALTEPLASE 2MG/VIAL ITC NR (12:00)
[2021-08-29 12:26] LABS: PARTIAL THROMBOPLASTIN TIME 30.3 sec (23.4-31.0); PROTHROMBIN TIME 10.7 sec (9.6-11.0)
[2021-08-29] MEDS ORDERED: LIDOCAINE HCL 1% 20ML VIAL (Pyxis) INJ ONE (12:55)
[2021-08-29] MEDS ORDERED: HEPARIN 1000 UNITS/ML 10ML ONE (12:56)
[2021-08-29] MEDS ORDERED: IOHEXOL-300 100 ML BOTTLE ONE (12:56)
[2021-08-29] MEDS ORDERED: CEFAZOLIN 1000MG PREMIX 50 ML IV ONE ×2 (13:01→13:15)
[2021-08-29] MEDS ORDERED: FENTANYL CITRATE/PF 50MCG/ML 2ML VIAL ONE (13:03)
[2021-08-29] MEDS ORDERED: FENTANYL CITRATE/PF 50MCG/ML 2ML VIAL IV SCH (14:00)
== END 2021-08-29 15:04 | disposition home or self-care (01) ==
LOC: ER 08:35
DX: L98.8 Other specified disorders of the skin and subcutaneous tissue (principal); I12.0 Hypertensive chronic kidney disease with stage 5 chronic kidney disease or end stage renal disease; N18.6 End stage renal disease; Z20.822 Contact with and (suspected) exposure to COVID-19
CPT/HCPCS: 36415; 36905; 76937; 80053; 85025; 85610; 85730; 86850; 86900; 86901; 87426; 96365; 96375; 99284; C1725; C1766; C1769; J0690; J1644; J2997; J3010; J3490; Q9967; 99152; 99153; G0500

== ENCOUNTER 2021-12-02 07:03 | Emergency (ER) | payer BC, MEDICAID ==
[~2021-12-02] VITALS: Ht 182.9 cm; Wt 73.0 kg
[2021-12-02 08:52] LABS: BASOPHILS % 0.8 % (0.0-2.0); HEMATOCRIT. 31.6 % (42.0-52.0); HEMOGLOBIN. 10.6 g/dL (14.0-18.0); LYMPHOCYTES % 19.1 % (20.0-50.0); MEAN CORPUSCULAR HEMOGLOBIN 32.4 pg (28.0-32.0); MEAN CORPUSCULAR VOLUME 96.4 fL (80.0-94.0); MEAN PLATELET VOLUME 8.4 fl (7.4-10.4); MONOCYTES % 7.5 % (2.0-8.0); NEUTROPHILS % 64.6 % (40.0-76.0); PLATELET 204 x1000/uL (130-400); RED BLOOD CELL COUNT 3.28 mill/uL (4.7-6.1); RED CELL DISTRIBUTION WIDTH 17.5 % (11.6-14.6)
[2021-12-02 08:53] VITALS: BP 157/71
[2021-12-02 08:55] LABS: CHLORIDE 102 mEq/L (98-107)
== END 2021-12-02 10:18 | disposition home or self-care (01) ==
LOC: ER 07:03
DX: I12.0 Hypertensive chronic kidney disease with stage 5 chronic kidney disease or end stage renal disease (principal); Z20.822 Contact with and (suspected) exposure to COVID-19
CPT/HCPCS: 36415; 80053; 85025; 87426; 93005; 99284

== ENCOUNTER 2022-10-01 12:53 | Inpatient (IN) | payer BC, MEDICAID ==
[~2022-10-01] VITALS: Ht 190.5 cm; Wt 74.4 kg
[~2022-10-01 12:53] MED LIST changes: +BENA-8 PO; -BENA20TA10 PO
[2022-10-01 17:18] LABS: BASOPHILS % 0.3 % (0.0-2.0); EOSINOPHILS % 6.4 % (0.0-5.0); HEMATOCRIT. 34.2 % (42.0-52.0); HEMOGLOBIN. 11.5 g/dL (14.0-18.0); LYMPHOCYTES % 37.4 % (20.0-50.0); MEAN CORPUSCULAR HEMOGLOBIN 32.5 pg (28.0-32.0); MEAN CORPUSCULAR VOLUME 97.1 fL (80.0-94.0); MEAN PLATELET VOLUME 8.2 fl (7.4-10.4); MONOCYTES % 8.2 % (2.0-8.0); NEUTROPHILS % 47.7 % (40.0-76.0); PLATELET 247 x1000/uL (130-400); RED BLOOD CELL COUNT 3.52 mill/uL (4.7-6.1); RED CELL DISTRIBUTION WIDTH 16.6 % (11.6-14.6)
[2022-10-01 17:24] LABS: CHLORIDE 101 mEq/L (98-107)
[2022-10-01] MEDS ORDERED: INSULIN REGULAR (HUMULIN R) 300UNITS/3ML VIAL IV ONE (18:00)
[2022-10-01] MEDS ORDERED: ALBUTEROL (0.083%) 2.5MG/3ML NEB HHN ONE (18:00)
[2022-10-01] MEDS ORDERED: DEXTROSE 50% WATER 50ML SYRINGE IV ONE (18:00)
[2022-10-02] VITALS (13 sets, daily range): BP systolic 94–164; BP diastolic 58–89
[2022-10-02] MEDS ORDERED: DEXTROSE 50% WATER 50ML SYRINGE IV NR (01:15)
[2022-10-02] MEDS ORDERED: ALBUTEROL (0.083%) 2.5MG/3ML NEB HHN NR (01:15)
[2022-10-02] MEDS ORDERED: INSULIN REGULAR (HUMULIN R) 300UNITS/3ML VIAL IV NR (01:15)
[2022-10-02] MEDS: BENAZEPRIL 10MG TABLET PO SCH (09:58)
[2022-10-02] MEDS: AMLODIPINE 10MG TABLET PO SCH (09:58)
[2022-10-02] MEDS ORDERED: CLONIDINE 0.1MG TABLET PO PRN (10:30)
[2022-10-02] MEDS ORDERED: AMLODIPINE 10MG TABLET PO SCH (10:30)
[2022-10-02] MEDS ORDERED: ACETAMINOPHEN 325MG TABLET PO PRN (10:30)
[2022-10-02] MEDS ORDERED: ONDANSETRON HCL 4MG/2ML INJ IV PRN (10:30)
[2022-10-02] MEDS ORDERED: ENOXAPARIN 40MG/0.4ML SYR SUBCUT SCH (10:30)
[2022-10-02] MEDS: ENOXAPARIN 30MG/0.3ML SYR SUBCUT SCH (11:06)
[2022-10-02 12:42] LABS: BASOPHILS % 0.5 % (0.0-2.0); HEMATOCRIT. 35.3 % (42.0-52.0); HEMOGLOBIN. 11.9 g/dL (14.0-18.0); LYMPHOCYTES % 29.4 % (20.0-50.0); MEAN CORPUSCULAR VOLUME 98.1 fL (80.0-94.0); MEAN PLATELET VOLUME 8.1 fl (7.4-10.4); MONOCYTES % 7.1 % (2.0-8.0); PLATELET 239 x1000/uL (130-400); RED BLOOD CELL COUNT 3.59 mill/uL (4.7-6.1); RED CELL DISTRIBUTION WIDTH 16.9 % (11.6-14.6)
[2022-10-02 14:15] LABS: CREATINE KINASE 101 IU/L (39-308); CREATINE KINASE MB FRACTION 1.1 ng/mL (0.5-3.6)
[2022-10-02 19:21] LABS: HEPATITIS B SURFACE ANTIGEN NEGATIVE
[2022-10-03] VITALS (15 sets, daily range): BP systolic 85–171; BP diastolic 61–107
[2022-10-03 00:32] LABS: CREATINE KINASE 84 IU/L (39-308); CREATINE KINASE MB FRACTION < 1.0 ng/mL (0.5-3.6)
[2022-10-03] MEDS ORDERED: BENAZEPRIL 10MG TABLET PO SCH (09:00)
[2022-10-03] MEDS: AMLODIPINE 10MG TABLET PO SCH (09:51)
[2022-10-03] MEDS: THROAT LOZENGES-BENZOCAINE/MENTH/CETYLPYRD CL LOZENGES MM PRN (09:51)
[2022-10-03] MEDS: BENAZEPRIL 10MG TABLET PO SCH (09:51)
[2022-10-03] MEDS: ENOXAPARIN 30MG/0.3ML SYR SUBCUT SCH (10:01)
[2022-10-03 10:50] LABS: BASOPHILS % 0.4 % (0.0-2.0); EOSINOPHILS % 3.3 % (0.0-5.0); HEMOGLOBIN. 12.1 g/dL (14.0-18.0); LYMPHOCYTES % 25.6 % (20.0-50.0); MEAN CORPUSCULAR HEMOGLOBIN 32.5 pg (28.0-32.0); MEAN PLATELET VOLUME 8.2 fl (7.4-10.4); MONOCYTES % 5.5 % (2.0-8.0); NEUTROPHILS % 65.2 % (40.0-76.0); PLATELET 232 x1000/uL (130-400); RED BLOOD CELL COUNT 3.71 mill/uL (4.7-6.1); RED CELL DISTRIBUTION WIDTH 16.5 % (11.6-14.6)
[2022-10-04] VITALS: BP 143/79
[2022-10-04 04:00] VITALS: BP 148/84
[2022-10-04] MEDS: THROAT LOZENGES-BENZOCAINE/MENTH/CETYLPYRD CL LOZENGES MM PRN ×2 (06:55→20:22)
[2022-10-04 07:48] LABS: HEMATOCRIT. 34.3 % (42.0-52.0); HEMOGLOBIN. 11.5 g/dL (14.0-18.0); MEAN CORPUSCULAR HEMOGLOBIN 32.9 pg (28.0-32.0); MEAN CORPUSCULAR VOLUME 98.3 fL (80.0-94.0); RED BLOOD CELL COUNT 3.49 mill/uL (4.7-6.1); RED CELL DISTRIBUTION WIDTH 16.5 % (11.6-14.6)
[2022-10-04 08:00] VITALS: BP_SYST 115; BP_SYST 133; BP_DIAS 44; BP_DIAS 71; BP_DIAS 74
[2022-10-04] MEDS: AMLODIPINE 10MG TABLET PO SCH (09:18)
[2022-10-04] MEDS: BENAZEPRIL 10MG TABLET PO SCH (09:18)
[2022-10-04] MEDS: ENOXAPARIN 30MG/0.3ML SYR SUBCUT SCH (09:19)
[2022-10-04 12:00] VITALS: BP 121/72
[2022-10-04 16:00] VITALS: BP 142/67
[2022-10-04 20:00] VITALS: BP 119/67
[2022-10-05] VITALS (17 sets, daily range): BP systolic 103–143; BP diastolic 53–86
[2022-10-05] MEDS: ENOXAPARIN 30MG/0.3ML SYR SUBCUT SCH (08:45)
[2022-10-05] MEDS: AMLODIPINE 10MG TABLET PO SCH (08:46)
[2022-10-05] MEDS: BENAZEPRIL 10MG TABLET PO SCH (08:46)
[2022-10-05 15:31] LABS: BASOPHILS % 0.4 % (0.0-2.0); EOSINOPHILS % 8.7 % (0.0-5.0); HEMATOCRIT. 33.7 % (42.0-52.0); HEMOGLOBIN. 11.5 g/dL (14.0-18.0); LYMPHOCYTES % 28.7 % (20.0-50.0); MEAN CORPUSCULAR HEMOGLOBIN 32.9 pg (28.0-32.0); MEAN CORPUSCULAR VOLUME 96.1 fL (80.0-94.0); MEAN PLATELET VOLUME 8.2 fl (7.4-10.4); NEUTROPHILS % 53.2 % (40.0-76.0); PLATELET 263 x1000/uL (130-400); RED BLOOD CELL COUNT 3.51 mill/uL (4.7-6.1); RED CELL DISTRIBUTION WIDTH 16.5 % (11.6-14.6)
[2022-10-06 00:10] VITALS: BP 124/79
[2022-10-06 04:00] VITALS: BP 123/78
[2022-10-06 07:16] LABS: BASOPHILS % 0.5 % (0.0-2.0); EOSINOPHILS % 8.7 % (0.0-5.0); HEMATOCRIT. 33.1 % (42.0-52.0); HEMOGLOBIN. 11.3 g/dL (14.0-18.0); LYMPHOCYTES % 22.9 % (20.0-50.0); MEAN CORPUSCULAR HEMOGLOBIN 33.4 pg (28.0-32.0); MEAN CORPUSCULAR VOLUME 98.2 fL (80.0-94.0); MEAN PLATELET VOLUME 8.1 fl (7.4-10.4); MONOCYTES % 8.9 % (2.0-8.0); PLATELET 242 x1000/uL (130-400); RED BLOOD CELL COUNT 3.37 mill/uL (4.7-6.1); RED CELL DISTRIBUTION WIDTH 16.5 % (11.6-14.6)
[2022-10-06 08:00] VITALS: BP 157/73
[2022-10-06] MEDS: BENAZEPRIL 10MG TABLET PO SCH (09:52)
[2022-10-06] MEDS: AMLODIPINE 10MG TABLET PO SCH (09:52)
[2022-10-06] MEDS: ENOXAPARIN 30MG/0.3ML SYR SUBCUT SCH (09:53)
[2022-10-06 12:38] VITALS: BP 128/62
== END 2022-10-06 13:50 | disposition home or self-care (01) | DRG 177 ==
LOC: ER 12:53 → SUPCPDRO 16:42 → 7EST 21:28
PROVIDERS: ADMIT Internal Medicine; ATTEND Internal Medicine
PROC: 5A1D70Z Performance of Urinary Filtration, Intermittent, Less than 6 Hours Per Day (ICD-10-PCS; principal; 2022-10-02)
PROC: 5A1D70Z Performance of Urinary Filtration, Intermittent, Less than 6 Hours Per Day (ICD-10-PCS; 2022-10-03)
PROC: 5A1D70Z Performance of Urinary Filtration, Intermittent, Less than 6 Hours Per Day (ICD-10-PCS; 2022-10-05)
DX: U07.1 COVID-19 (principal); N18.6 End stage renal disease; I13.2 Hypertensive heart and chronic kidney disease with heart failure and with stage 5 chronic kidney disease, or end stage renal disease; I50.30 Unspecified diastolic (congestive) heart failure; E87.5 Hyperkalemia; B19.20 Unspecified viral hepatitis C without hepatic coma; D63.1 Anemia in chronic kidney disease; R74.01 Elevation of levels of liver transaminase levels; Z91.15 Patient's noncompliance with renal dialysis; Z99.2 Dependence on renal dialysis; Z59.00 Homelessness unspecified; Z79.899 Other long term (current) drug therapy
CPT/HCPCS: 36415; 71045; 80048; 80053; 80061; 82550; 82553; 83735; 83880; 84132; 84145; 84484; 85025; 86705; 86706; 86803; 87340; 87426; 90935; 93005; 93970; 99285; C1893; J1650; J1815; U0003; U0005